=== PATIENT | female | born 1985 | race Caucasian/White ===

== ENCOUNTER 2017-04-03 08:38 | Day surgery (SDC) | payer OTHER ==
[2017-04-03 09:01] VITALS: BMI 33.0
[2017-04-03 09:03] VITALS: O2SAT 100
--- NOTE | 2017-04-03 09:35 | CP.SDSHP ---
Same Day Surgery H & P - History Proposed Procedure: EGD Pre-Op Diagnosis: SEE NOTES - Previous Medical/Surgical History Misc: Other Pain: 4.Moderate Pain - Allergies Allergies: Allergies No Known Allergies Allergy (Verified 04/03/17 09:01) - Physical Exam General Appearance: N Vital Signs: Vital Signs 04/03/17 04/03/17 04/03/17 09:02 09:07 09:12 Temperature 97.8 F 97.8 F Pulse Rate 81 81 81 Respiratory 20 20 Rate Blood Pressure 118/71 118/71 O2 Sat by Pulse 100 100 Oximetry 04/03/17 09:25 Temperature Pulse Rate 81 Respiratory Rate Blood Pressure O2 Sat by Pulse Oximetry Mental Status: Alert & Oriented x3 Neuro: WNL Heart: WNL Lungs: WNL GI: Other - {Optional Preform as Required} Breast: WNL Abdomen: Other Rectal: Other Integument: WNL : WNL Ortho: WNL ENT: WNL - Impression Pt. Evaluated Today:Candidate for Anesthesia & Procedure: Yes - Date & Time Time: 09:35 Short Stay Discharge - Short Stay Discharge Admitting Diagnosis/Reason for Visit: FUNCTIONAL DYSPEPSIA Disposition: HOME/ ROUTINE
[2017-04-03] MEDS ORDERED: Propofol 10 mg/ml Inj (20 ML) ONE (09:40)
[2017-04-03 10:14] VITALS: TEMP 98.7
[2017-04-03] MEDS ORDERED: Belladonna-Phenobarbital PO ONE (10:15)
[2017-04-03 10:45] VITALS: RESP 12
[2017-04-03 11:35] VITALS: BP 110/65; PULSE 77
== END 2017-04-03 11:30 | disposition home or self-care (01) ==
LOC: C.ENDO 08:38
PROVIDERS: ATTEND Specialist
DX: K29.60 Other gastritis without bleeding (principal); K20.9 Esophagitis, unspecified; K44.9 Diaphragmatic hernia without obstruction or gangrene; Z98.890 Other specified postprocedural states; Z79.899 Other long term (current) drug therapy
CPT/HCPCS: 43239; 84703; 88305; J2001; J2704